=== PATIENT | male | born 1990 | race Caucasian/White ===

== ENCOUNTER 2017-04-04 05:29 | Inpatient (IN) | payer OTHER ==
[2017-04-04] MEDS: HYDROmorphONE 1 MG/ML SYG IV (05:51)
[2017-04-04] MEDS ORDERED: NITROGLYCERIN (SL) 0.4 MG TAB SL (06:30)
[2017-04-04] MEDS ORDERED: MAGNESIUM HYDROXIDE 30ML CUP PO (06:30)
[2017-04-04] MEDS ORDERED: hydrALAzine 20 MG INJ IV (06:30)
[2017-04-04] MEDS ORDERED: NA PHOSPHATE/BIPHOS 133 ML ENEMA PR (06:30)
[2017-04-04] MEDS ORDERED: LORAZEPAM 2 MG INJ IV (06:30)
[2017-04-04] MEDS ORDERED: ONDANSETRON 4 MG INJ IV (06:30)
[2017-04-04] MEDS ORDERED: ACETAMINOPHEN 325 MG TAB PO (06:30)
[2017-04-04] MEDS ORDERED: HYDROCODONE/APAP (5/325) TAB PO (06:30)
[2017-04-04] MEDS ORDERED: ALBUTEROL/IPRATROPIUM (NEB) 3 ML AMP HHN (06:30)
[2017-04-04] MEDS ORDERED: DOCUSATE SODIUM 100 MG CAP PO (06:30)
[2017-04-04] MEDS ORDERED: NACL 0.9% 3 ML SYG IV (06:30)
[2017-04-04] MEDS: SOD CHLORIDE 0.9% 1,000 ML IV (07:14)
[2017-04-04] MEDS: PIPER-TAZO 3.375 GM IV (PMX) 100 ML IVPB ×2 (07:32→14:10)
[2017-04-04 08:04] LABS: ADD MAN DIFF? NO
[2017-04-04 08:07] LABS: BASOPHILS % 0.4 % (0.0-2.0); EOSINOPHILS % 0.4 % (0.0-7.0); HEMATOCRIT 39.9 % (42.0-52.0); HEMOGLOBIN 13.4 g/dl (14.0-18.0); LYMPHOCYTES # 1.6 10^3/ul (0.8-2.9); LYMPHOCYTES % 23.8 % (15.0-51.0); MEAN CORPUSCULAR HEMOGLOBIN 30.2 pg (29.0-33.0); MEAN CORPUSCULAR HGB CONC 33.6 g/dl (32.0-37.0); MEAN CORPUSCULAR VOLUME 90.1 fl (82.0-101.0); MEAN PLATELET VOLUME 9.6 fl (7.4-10.4); MONOCYTE # 0.7 10^3/ul (0.3-0.9); MONOCYTES % 10.3 % (0.0-11.0); NEUTROPHIL # 4.4 10^3/ul (1.6-7.5); NEUTROPHILS % 64.8 % (39.0-77.0); PLATELET COUNT 212 10^3/UL (140-415); RED BLOOD COUNT 4.43 10^6/ul (4.70-6.10); RED CELL DISTRIBUTION WIDTH 11.4 % (11.5-14.5)
[2017-04-04 08:07] LABS: WHITE BLOOD COUNT 6.7 10^3/ul (4.8-10.8)
[2017-04-04 08:30] LABS: INR 1.09; PROTIME 14.2 Sec (11.9-14.9); PT RATIO 1.1
[2017-04-04 08:31] LABS: PARTIAL THROMBOPLASTIN TIME 31.9 Sec (25.0-35.0)
[2017-04-04] MEDS: morphine 2 MG INJ IV ×3 (08:37→15:45)
[2017-04-04 08:47] LABS: ALANINE AMINOTRANSFERASE 28 IU/L (13-69); ALBUMIN 3.9 g/dl (3.3-4.9); ALBUMIN/GLOBULIN RATIO 1.08; ALKALINE PHOSPHATASE 46 IU/L (42-121); ANION GAP 14 (8-16); ASPARTATE AMINO TRANSFERASE 20 IU/L (15-46); BILIRUBIN,INDIRECT 0.5 mg/dl (0-1.1); BILIRUBIN,TOTAL 0.5 mg/dl (0.2-1.3); BLOOD UREA NITROGEN 10 mg/dl (7-20); CALCIUM 9.2 mg/dl (8.4-10.2); CARBON DIOXIDE 30 mmol/L (21-31); CHLORIDE 103 mmol/L (97-110); CREATININE 1.01 mg/dl (0.61-1.24); GLUCOSE 90 mg/dl (70-220); LIPASE 30 U/L (23-300); POTASSIUM 3.7 mmol/L (3.5-5.1); SODIUM 143 mmol/L (135-144); TOTAL PROTEIN 7.5 g/dl (6.1-8.1)
[2017-04-04] MEDS: HEPARIN 5,000 UNIT/0.5 ML VIAL SC (09:00)
[2017-04-04 09:05] LABS: FREE T4 (FREE THYROXINE) 1.02 ng/dl (0.79-2.35)
[2017-04-04] MEDS: SOD CHLORIDE 0.45% 1,000 ML IV (09:45)
[2017-04-05] MEDS ORDERED: PANTOPRAZOLE (EC) 40 MG TAB PO (06:00)
== END 2017-04-04 16:02 | disposition left against medical advice (07) | DRG 392 ==
LOC: MS1 06:26 → FTE 16:06
DX: K57.32 Diverticulitis of large intestine without perforation or abscess without bleeding (principal); E03.9 Hypothyroidism, unspecified
CPT/HCPCS: 36415; 80053; 83690; 84439; 85025; 85610; 85730; 96365; 96366; 96375; 96376; 99285-25

== ENCOUNTER 2017-04-24 14:59 | Emergency (ER) | payer OTHER ==
[2017-04-24 21:24] LABS: ADD MAN DIFF? NO
[2017-04-24] MEDS: morphine 4 MG/ML VIAL IV (21:29)
[2017-04-24] MEDS: SOD CHLORIDE 0.9% 500 ML IV (21:29)
[2017-04-24] MEDS: ONDANSETRON 4 MG INJ IV (21:29)
[2017-04-24 21:32] LABS: ADD UMIC NO; UR ASCORBIC ACID NEGATIVE (NEGATIVE); UR BILIRUBIN (Dip) NEGATIVE (NEGATIVE); UR BLOOD (Dip) NEGATIVE (NEGATIVE); UR CLARITY CLEAR (CLEAR); UR COLOR YELLOW (YELLOW); UR GLUCOSE (Dip) NEGATIVE (NEGATIVE); UR KETONES (Dip) NEGATIVE (NEGATIVE); UR LEUKOCYTE ESTERASE (Dip) NEGATIVE Leu/ul (NEGATIVE); UR NITRITE (Dip) NEGATIVE (NEGATIVE); UR SPECIFIC GRAVITY (Dip) 1.011 (1.003-1.030); UR TOTAL PROTEIN (Dip) NEGATIVE (NEGATIVE); UR UROBILINOGEN (Dip) NEGATIVE (NEGATIVE)
[2017-04-24 21:45] LABS: INR 0.92; PROTIME 12.4 Sec (11.9-14.9)
[2017-04-24 21:46] LABS: PARTIAL THROMBOPLASTIN TIME 24.9 Sec (25.0-35.0)
[2017-04-24 21:47] LABS: ALANINE AMINOTRANSFERASE 35 IU/L (13-69); ALBUMIN 4.9 g/dl (3.3-4.9); ALBUMIN/GLOBULIN RATIO 1.48; ALKALINE PHOSPHATASE 56 IU/L (42-121); AMYLASE 37 U/L (11-123); ANION GAP 18 (8-16); ASPARTATE AMINO TRANSFERASE 21 IU/L (15-46); BILIRUBIN,INDIRECT 0.6 mg/dl (0-1.1); BILIRUBIN,TOTAL 0.6 mg/dl (0.2-1.3); BLOOD UREA NITROGEN 9 mg/dl (7-20); CALCIUM 9.6 mg/dl (8.4-10.2); CARBON DIOXIDE 24 mmol/L (21-31); CHLORIDE 103 mmol/L (97-110); CREATININE 0.79 mg/dl (0.61-1.24); GLUCOSE 81 mg/dl (70-220); LIPASE 54 U/L (23-300); POTASSIUM 4.1 mmol/L (3.5-5.1); SODIUM 141 mmol/L (135-144); TOTAL PROTEIN 8.2 g/dl (6.1-8.1)
[2017-04-24 21:59] LABS: WHITE BLOOD COUNT 11.4 10^3/ul (4.8-10.8)
[2017-04-24 21:59] LABS: BASOPHILS % 0.2 % (0.0-2.0); EOSINOPHILS # 0.1 10^3/ul (0.0-0.5); EOSINOPHILS % 1.2 % (0.0-7.0); HEMATOCRIT 40.9 % (42.0-52.0); HEMOGLOBIN 14.1 g/dl (14.0-18.0); LYMPHOCYTES # 2.7 10^3/ul (0.8-2.9); MEAN CORPUSCULAR HEMOGLOBIN 30.8 pg (29.0-33.0); MEAN CORPUSCULAR HGB CONC 34.5 g/dl (32.0-37.0); MEAN CORPUSCULAR VOLUME 89.3 fl (82.0-101.0); MEAN PLATELET VOLUME 9.4 fl (7.4-10.4); MONOCYTE # 0.6 10^3/ul (0.3-0.9); MONOCYTES % 4.9 % (0.0-11.0); NEUTROPHIL # 7.9 10^3/ul (1.6-7.5); NEUTROPHILS % 69.4 % (39.0-77.0); PLATELET COUNT 225 10^3/UL (140-415); RED BLOOD COUNT 4.58 10^6/ul (4.70-6.10); RED CELL DISTRIBUTION WIDTH 11.8 % (11.5-14.5)
[2017-04-24] MEDS: HYDROmorphONE 1 MG/ML SYG IV (22:54)
[2017-04-24] MEDS: SOD CHLORIDE 0.9% 100 ML (23:00)
[2017-04-24] MEDS: IOHEXOL 300MG/ML 150 ML BTL (23:00)
[2017-04-25] MEDS: HYDROmorphONE 0.5 MG/0.5 ML SYG IV (01:08)
== END 2017-04-25 02:05 | disposition home or self-care (01) ==
LOC: FTE 04-25 02:05
DX: K57.92 Diverticulitis of intestine, part unspecified, without perforation or abscess without bleeding (principal)
CPT/HCPCS: 36415; 74177; 80053; 81003; 82150; 83690; 85025; 85610; 85730; 87400; 96374; 96375; 96376; 99285-25

== ENCOUNTER 2017-07-10 23:17 | Emergency (ER) | payer OTHER ==
[2017-07-11] MEDS: ONDANSETRON 4 MG INJ IV (02:17)
[2017-07-11] MEDS: morphine 4 MG/ML VIAL IV ×2 (02:17→04:35)
[2017-07-11] MEDS: SOD CHLORIDE 0.9% 1,000 ML IV (02:18)
[2017-07-11 02:30] LABS: ADD MAN DIFF? NO
[2017-07-11 02:35] LABS: BASOPHILS % 0.3 % (0.0-2.0); EOSINOPHILS # 0.1 10^3/ul (0.0-0.5); EOSINOPHILS % 0.8 % (0.0-7.0); HEMATOCRIT 45.8 % (42.0-52.0); LYMPHOCYTES # 2.8 10^3/ul (0.8-2.9); LYMPHOCYTES % 26.3 % (15.0-51.0); MEAN CORPUSCULAR HEMOGLOBIN 30.4 pg (29.0-33.0); MEAN CORPUSCULAR HGB CONC 34.9 g/dl (32.0-37.0); MEAN CORPUSCULAR VOLUME 87.1 fl (82.0-101.0); MEAN PLATELET VOLUME 9.5 fl (7.4-10.4); MONOCYTE # 0.6 10^3/ul (0.3-0.9); MONOCYTES % 5.7 % (0.0-11.0); NEUTROPHIL # 7.1 10^3/ul (1.6-7.5); NEUTROPHILS % 66.5 % (39.0-77.0); PLATELET COUNT 258 10^3/UL (140-415); RED BLOOD COUNT 5.26 10^6/ul (4.70-6.10); RED CELL DISTRIBUTION WIDTH 11.6 % (11.5-14.5)
[2017-07-11 02:35] LABS: WHITE BLOOD COUNT 10.6 10^3/ul (4.8-10.8)
[2017-07-11 02:52] LABS: ALANINE AMINOTRANSFERASE 54 IU/L (13-69); ALBUMIN 4.8 g/dl (3.3-4.9); ALBUMIN/GLOBULIN RATIO 1.11; ALKALINE PHOSPHATASE 49 IU/L (42-121); ANION GAP 21 (8-16); ASPARTATE AMINO TRANSFERASE 29 IU/L (15-46); BILIRUBIN,INDIRECT 0.6 mg/dl (0-1.1); BILIRUBIN,TOTAL 0.6 mg/dl (0.2-1.3); BLOOD UREA NITROGEN 14 mg/dl (7-20); CALCIUM 9.8 mg/dl (8.4-10.2); CARBON DIOXIDE 31 mmol/L (21-31); CHLORIDE 100 mmol/L (97-110); CREATININE 0.97 mg/dl (0.61-1.24); GLUCOSE 95 mg/dl (70-220); LIPASE 43 U/L (23-300); POTASSIUM 4.5 mmol/L (3.5-5.1); SODIUM 147 mmol/L (135-144); TOTAL PROTEIN 9.1 g/dl (6.1-8.1)
[2017-07-11 03:09] LABS: ADD UMIC NO; UR ASCORBIC ACID NEGATIVE (NEGATIVE); UR BILIRUBIN (Dip) NEGATIVE (NEGATIVE); UR BLOOD (Dip) NEGATIVE (NEGATIVE); UR CLARITY CLEAR (CLEAR); UR COLOR YELLOW (YELLOW); UR GLUCOSE (Dip) NEGATIVE (NEGATIVE); UR KETONES (Dip) NEGATIVE (NEGATIVE); UR LEUKOCYTE ESTERASE (Dip) NEGATIVE Leu/ul (NEGATIVE); UR NITRITE (Dip) NEGATIVE (NEGATIVE); UR SPECIFIC GRAVITY (Dip) 1.017 (1.003-1.030); UR TOTAL PROTEIN (Dip) NEGATIVE (NEGATIVE); UR UROBILINOGEN (Dip) NEGATIVE (NEGATIVE)
[2017-07-11] MEDS: IOHEXOL 300MG/ML 150 ML BTL (03:33)
[2017-07-11] MEDS: SOD CHLORIDE 0.9% 100 ML (03:33)
== END 2017-07-11 04:51 | disposition home or self-care (01) ==
LOC: FTE 23:17
DX: K57.92 Diverticulitis of intestine, part unspecified, without perforation or abscess without bleeding (principal)
CPT/HCPCS: 36415; 74177; 80053; 81003; 83690; 85025; 96374; 96375; 96376; 99285-25

== ENCOUNTER 2017-07-16 21:12 | Emergency (ER) | payer OTHER ==
[2017-07-16] MEDS: HYDROCODONE/APAP (5/325) TAB PO (22:43)
[2017-07-16 23:01] LABS: ADD MAN DIFF? NO
[2017-07-16 23:04] LABS: WHITE BLOOD COUNT 9.6 10^3/ul (4.8-10.8)
[2017-07-16 23:04] LABS: BASOPHILS % 0.3 % (0.0-2.0); EOSINOPHILS # 0.1 10^3/ul (0.0-0.5); EOSINOPHILS % 1.2 % (0.0-7.0); HEMATOCRIT 40.3 % (42.0-52.0); HEMOGLOBIN 13.8 g/dl (14.0-18.0); LYMPHOCYTES # 3.2 10^3/ul (0.8-2.9); LYMPHOCYTES % 33.3 % (15.0-51.0); MEAN CORPUSCULAR HEMOGLOBIN 30.2 pg (29.0-33.0); MEAN CORPUSCULAR HGB CONC 34.2 g/dl (32.0-37.0); MEAN CORPUSCULAR VOLUME 88.2 fl (82.0-101.0); MEAN PLATELET VOLUME 9.2 fl (7.4-10.4); MONOCYTE # 0.5 10^3/ul (0.3-0.9); MONOCYTES % 5.1 % (0.0-11.0); NEUTROPHIL # 5.8 10^3/ul (1.6-7.5); NEUTROPHILS % 59.8 % (39.0-77.0); PLATELET COUNT 273 10^3/UL (140-415); RED BLOOD COUNT 4.57 10^6/ul (4.70-6.10); RED CELL DISTRIBUTION WIDTH 11.8 % (11.5-14.5)
[2017-07-16 23:20] LABS: ALANINE AMINOTRANSFERASE 40 IU/L (13-69); ALBUMIN 3.7 g/dl (3.3-4.9); ALBUMIN/GLOBULIN RATIO 1.12; ALKALINE PHOSPHATASE 41 IU/L (42-121); ANION GAP 15 (8-16); ASPARTATE AMINO TRANSFERASE 17 IU/L (15-46); BILIRUBIN,INDIRECT 0.2 mg/dl (0-1.1); BILIRUBIN,TOTAL 0.2 mg/dl (0.2-1.3); BLOOD UREA NITROGEN 17 mg/dl (7-20); CALCIUM 8.8 mg/dl (8.4-10.2); CARBON DIOXIDE 27 mmol/L (21-31); CHLORIDE 107 mmol/L (97-110); GLUCOSE 95 mg/dl (70-220); POTASSIUM 3.9 mmol/L (3.5-5.1); SODIUM 145 mmol/L (135-144)
[2017-07-16 23:23] LABS: INR 1.25; PARTIAL THROMBOPLASTIN TIME 32.8 Sec (25.0-35.0); PROTIME 15.9 Sec (11.9-14.9); PT RATIO 1.2
[2017-07-17] MEDS: KETOROLAC 30 MG INJ IM (00:38)
== END 2017-07-17 00:45 | disposition home or self-care (01) ==
LOC: FTE 07-17 00:45
DX: I80.8 Phlebitis and thrombophlebitis of other sites (principal)
CPT/HCPCS: 80053; 85025; 85610; 85730; 93971; 96372; 99285-25

== ENCOUNTER 2017-07-20 18:58 | Inpatient (IN) | payer OTHER ==
[2017-07-20] MEDS: HYDROmorphONE 2 MG TAB PO (20:48)
[2017-07-20] MEDS ORDERED: HYDROmorphONE 0.5 MG/0.5 ML SYG IV (21:00)
[2017-07-20] MEDS ORDERED: OXYCODONE/ACETAMINOPHEN (5/325) TAB PO (21:00)
[2017-07-20] MEDS ORDERED: NACL 0.9% 3 ML SYG IV (21:00)
[2017-07-20] MEDS ORDERED: PIPER-TAZO 3.375 GM IV (PMX) 100 ML IVPB (22:00)
[2017-07-20] MEDS: KETOROLAC 15 MG INJ IV (22:37)
[2017-07-21] MEDS ORDERED: ENOXAPARIN 40 MG/0.4 ML SYG SC (09:00)
== END 2017-07-20 23:30 | disposition left against medical advice (07) | DRG 392 ==
LOC: PP2 18:58
DX: K57.92 Diverticulitis of intestine, part unspecified, without perforation or abscess without bleeding (principal); F11.10 Opioid abuse, uncomplicated

== ENCOUNTER 2017-07-24 02:45 | Emergency (ER) | payer OTHER ==
[2017-07-24] MEDS: HYDROCODONE/APAP (5/325) TAB PO (07:15)
[2017-07-24] MEDS: CIPROFLOXACIN 500 MG TAB PO (07:15)
[2017-07-24] MEDS: metroNIDAZOLE 500 MG TAB PO (07:29)
[2017-07-24 07:58] LABS: ADD UMIC NO; UR ASCORBIC ACID NEGATIVE (NEGATIVE); UR BILIRUBIN (Dip) NEGATIVE (NEGATIVE); UR BLOOD (Dip) NEGATIVE (NEGATIVE); UR CLARITY CLEAR (CLEAR); UR COLOR YELLOW (YELLOW); UR GLUCOSE (Dip) NEGATIVE (NEGATIVE); UR KETONES (Dip) NEGATIVE (NEGATIVE); UR LEUKOCYTE ESTERASE (Dip) NEGATIVE Leu/ul (NEGATIVE); UR NITRITE (Dip) NEGATIVE (NEGATIVE); UR SPECIFIC GRAVITY (Dip) 1.025 (1.003-1.030); UR TOTAL PROTEIN (Dip) NEGATIVE (NEGATIVE); UR UROBILINOGEN (Dip) NEGATIVE (NEGATIVE)
[2017-07-24 08:28] LABS: ADD MAN DIFF? NO
[2017-07-24 08:34] LABS: BASOPHILS % 0.2 % (0.0-2.0); EOSINOPHILS # 0.1 10^3/ul (0.0-0.5); EOSINOPHILS % 0.5 % (0.0-7.0); HEMATOCRIT 44.5 % (42.0-52.0); HEMOGLOBIN 15.1 g/dl (14.0-18.0); LYMPHOCYTES # 2.7 10^3/ul (0.8-2.9); LYMPHOCYTES % 25.1 % (15.0-51.0); MEAN CORPUSCULAR HEMOGLOBIN 30.2 pg (29.0-33.0); MEAN CORPUSCULAR HGB CONC 33.9 g/dl (32.0-37.0); MEAN PLATELET VOLUME 8.8 fl (7.4-10.4); MONOCYTE # 0.8 10^3/ul (0.3-0.9); MONOCYTES % 7.5 % (0.0-11.0); NEUTROPHIL # 7.1 10^3/ul (1.6-7.5); NEUTROPHILS % 66.4 % (39.0-77.0); PLATELET COUNT 318 10^3/UL (140-415)
[2017-07-24 08:34] LABS: WHITE BLOOD COUNT 10.7 10^3/ul (4.8-10.8)
[2017-07-24 09:18] LABS: ALANINE AMINOTRANSFERASE 30 IU/L (13-69); ALBUMIN 4.4 g/dl (3.3-4.9); ALBUMIN/GLOBULIN RATIO 1.25; ALKALINE PHOSPHATASE 45 IU/L (42-121); ANION GAP 14 (8-16); ASPARTATE AMINO TRANSFERASE 16 IU/L (15-46); BILIRUBIN,INDIRECT 0.7 mg/dl (0-1.1); BILIRUBIN,TOTAL 0.7 mg/dl (0.2-1.3); BLOOD UREA NITROGEN 14 mg/dl (7-20); CALCIUM 9.6 mg/dl (8.4-10.2); CARBON DIOXIDE 34 mmol/L (21-31); CHLORIDE 99 mmol/L (97-110); CREATININE 1.08 mg/dl (0.61-1.24); GLUCOSE 93 mg/dl (70-220); LIPASE 34 U/L (23-300); POTASSIUM 4.1 mmol/L (3.5-5.1); SODIUM 143 mmol/L (135-144); TOTAL PROTEIN 7.9 g/dl (6.1-8.1)
== END 2017-07-24 10:24 | disposition home or self-care (01) ==
LOC: FTE 02:45
DX: I82.90 Acute embolism and thrombosis of unspecified vein (principal); Z79.01 Long term (current) use of anticoagulants
CPT/HCPCS: 80053; 81003; 83690; 85025; 93971; 99284

== ENCOUNTER 2017-07-25 06:31 | Inpatient (IN) | payer OTHER ==
[2017-07-25] MEDS ORDERED: NACL 0.9% 3 ML SYG IV (09:30)
[2017-07-25] MEDS ORDERED: ONDANSETRON 4 MG INJ IV (09:30)
[2017-07-25] MEDS ORDERED: ACETAMINOPHEN 325 MG TAB PO (09:30)
[2017-07-25] MEDS ORDERED: DOCUSATE SODIUM 100 MG CAP PO (09:30)
[2017-07-25] MEDS: morphine 2 MG INJ IV ×3 (09:59→19:31)
[2017-07-25] MEDS: FAMOTIDINE 20 MG INJ IV ×2 (09:59→20:57)
[2017-07-25] MEDS: ERTAPENEM SODIUM 1 GM in SOD CHLORIDE 0.9% 100 ML IVPB (11:39)
[2017-07-25] MEDS: SOD CHLORIDE 0.9% 1,000 ML IV ×2 (11:40→19:32)
[2017-07-25] MEDS: RIVAROXABAN 20 MG TABLET PO (19:31)
[2017-07-25 21:19] LABS: ADD UMIC NO; UR ASCORBIC ACID NEGATIVE (NEGATIVE); UR BILIRUBIN (Dip) NEGATIVE (NEGATIVE); UR BLOOD (Dip) NEGATIVE (NEGATIVE); UR CLARITY CLEAR (CLEAR); UR COLOR YELLOW (YELLOW); UR GLUCOSE (Dip) NEGATIVE (NEGATIVE); UR KETONES (Dip) NEGATIVE (NEGATIVE); UR LEUKOCYTE ESTERASE (Dip) NEGATIVE Leu/ul (NEGATIVE); UR NITRITE (Dip) NEGATIVE (NEGATIVE); UR SPECIFIC GRAVITY (Dip) 1.027 (1.003-1.030); UR TOTAL PROTEIN (Dip) NEGATIVE (NEGATIVE); UR UROBILINOGEN (Dip) NEGATIVE (NEGATIVE)
== END 2017-07-25 22:00 | disposition left against medical advice (07) | DRG 392 ==
LOC: MS2 06:31
DX: K57.32 Diverticulitis of large intestine without perforation or abscess without bleeding (principal); I82.612 Acute embolism and thrombosis of superficial veins of left upper extremity
CPT/HCPCS: 81003; 87040; 87086

== ENCOUNTER 2017-11-26 00:08 | Inpatient (IN) | payer OTHER ==
[2017-11-26 01:27] LABS: ADD MAN DIFF? NO
[2017-11-26 01:29] LABS: BASOPHILS % 0.2 % (0.0-2.0); EOSINOPHILS % 0.3 % (0.0-7.0); HEMATOCRIT 41.7 % (42.0-52.0); HEMOGLOBIN 14.3 g/dl (14.0-18.0); LYMPHOCYTES # 1.8 10^3/ul (0.8-2.9); MEAN CORPUSCULAR HEMOGLOBIN 30.8 pg (29.0-33.0); MEAN CORPUSCULAR HGB CONC 34.3 g/dl (32.0-37.0); MEAN CORPUSCULAR VOLUME 89.7 fl (82.0-101.0); MEAN PLATELET VOLUME 9.3 fl (7.4-10.4); MONOCYTE # 0.7 10^3/ul (0.3-0.9); MONOCYTES % 6.6 % (0.0-11.0); NEUTROPHIL # 8.6 10^3/ul (1.6-7.5); NEUTROPHILS % 76.5 % (39.0-77.0); PLATELET COUNT 256 10^3/UL (140-415); RED BLOOD COUNT 4.65 10^6/ul (4.70-6.10); RED CELL DISTRIBUTION WIDTH 11.7 % (11.5-14.5)
[2017-11-26 01:29] LABS: WHITE BLOOD COUNT 11.3 10^3/ul (4.8-10.8)
[2017-11-26] MEDS: ONDANSETRON 4 MG INJ IV ×2 (01:30→16:50)
[2017-11-26] MEDS: morphine 4 MG/ML VIAL IV (01:30)
[2017-11-26] MEDS: SOD CHLORIDE 0.9% 1,000 ML IV ×4 (01:30→18:06)
[2017-11-26 01:48] LABS: INR 0.92
[2017-11-26 01:49] LABS: PARTIAL THROMBOPLASTIN TIME 26.2 Sec (25.0-35.0)
[2017-11-26 01:52] LABS: ALANINE AMINOTRANSFERASE 53 IU/L (13-69); ALBUMIN/GLOBULIN RATIO 1.08; ALKALINE PHOSPHATASE 45 IU/L (42-121); ANION GAP 14 (8-16); ASPARTATE AMINO TRANSFERASE 31 IU/L (15-46); BILIRUBIN,INDIRECT 0.6 mg/dl (0-1.1); BILIRUBIN,TOTAL 0.6 mg/dl (0.2-1.3); BLOOD UREA NITROGEN 12 mg/dl (7-20); CALCIUM 9.3 mg/dl (8.4-10.2); CARBON DIOXIDE 30 mmol/L (21-31); CHLORIDE 101 mmol/L (97-110); CREATININE 0.89 mg/dl (0.61-1.24); GLUCOSE 107 mg/dl (70-220); LIPASE 31 U/L (23-300); SODIUM 141 mmol/L (135-144); TOTAL PROTEIN 7.7 g/dl (6.1-8.1)
[2017-11-26] MEDS ORDERED: BISACODYL (EC) 5 MG TAB PO (02:30)
[2017-11-26] MEDS ORDERED: NACL 0.9% 3 ML SYG IV (02:30)
[2017-11-26] MEDS ORDERED: HYDROmorphONE 0.5 MG/0.5 ML SYG IV ×3 (02:30→16:30)
[2017-11-26] MEDS ORDERED: ACETAMINOPHEN 325 MG TAB PO (02:30)
[2017-11-26] MEDS ORDERED: DOCUSATE SODIUM 100 MG CAP PO (02:30)
[2017-11-26 02:32] LABS: PROTIME 12.4 Sec (11.9-14.9)
[2017-11-26] MEDS: morphine 2 MG INJ IV ×3 (03:49→22:38)
[2017-11-26] MEDS ORDERED: metroNIDAZOLE 500 MG/100 ML NS IVPB (07:00)
[2017-11-26] MEDS ORDERED: LIDOCAINE 2% (SDV) 5 ML INJ (07:00)
[2017-11-26] MEDS ORDERED: MIDAZOLAM 1 MG/ML 2 ML INJ (07:00)
[2017-11-26] MEDS ORDERED: PROPOFOL 200 MG INJ (07:00)
[2017-11-26] MEDS ORDERED: BUPIVACAINE 0.75%/DEXT (SPINAL) 2 ML INJ (07:00)
[2017-11-26] MEDS ORDERED: METHYLENE BLUE 1% 10 ML INJ (07:00)
[2017-11-26] MEDS ORDERED: PIPERACIL/TAZO 3.375GM/100ML BAG (07:00)
[2017-11-26] MEDS ORDERED: BUPIVACAINE 0.5% (SDV) 30 ML INJ (07:00)
[2017-11-26] MEDS ORDERED: FENTAnyl 250MCG INJ (07:00)
[2017-11-26] MEDS ORDERED: ROCURONIUM 50 MG INJ (07:00)
[2017-11-26] MEDS ORDERED: morphine SULFATE/PF (10 MG/10 ML) INJ (07:00)
[2017-11-26] MEDS: PIPER-TAZO 3.375 GM IV (PMX) 100 ML IVPB ×3 (08:54→18:43)
[2017-11-26] MEDS ORDERED: BUPIVACAINE 0.25% (MPF) 30 ML INJ (10:59)
[2017-11-26] MEDS ORDERED: BUPIVACAINE 0.5% 30 ML VIAL INJ (16:15)
[2017-11-26] MEDS ORDERED: HYDROmorphONE 1 MG/5 ML IV SYRINGE IV (16:30)
[2017-11-26] MEDS ORDERED: ONDANSETRON 4 MG INJ IV ×2 (16:30)
[2017-11-26] MEDS ORDERED: DIPHENHYDRAMINE 50 MG INJ IV ×2 (16:30)
[2017-11-26] MEDS ORDERED: metroNIDAZOLE 500 MG/NS (PMX) 100 ML IVPB (16:30)
[2017-11-26] MEDS ORDERED: ALBUTEROL 0.083% (NEB) 2.5 MG/3 ML AMP HHN (16:30)
[2017-11-26] MEDS ORDERED: KETOROLAC 30 MG INJ IV (16:30)
[2017-11-26] MEDS ORDERED: NALOXONE (0.4 MG/ML) INJ IV ×2 (16:30)
[2017-11-26] MEDS ORDERED: LABETALOL HCL 20MG INJ IV (16:30)
[2017-11-26] MEDS ORDERED: OXYCODONE/ACETAMINOPHEN (5/325) TAB PO ×2 (16:30)
[2017-11-26] MEDS ORDERED: hydrALAzine 20 MG INJ IV (16:30)
[2017-11-26] MEDS ORDERED: METOCLOPRAMIDE 10 MG INJ IV (16:30)
[2017-11-26] MEDS ORDERED: EPHEDrine SULFATE 50 MG/5 ML SYG IV (16:30)
[2017-11-26] MEDS ORDERED: MIDAZOLAM 1 MG/ML 2 ML INJ IV (16:30)
[2017-11-26] MEDS: MEPERIDINE 25 MG INJ IV (16:49)
[2017-11-26] MEDS: HYDROmorphONE 1 MG/5 ML IV SYRINGE IV ×2 (16:50→17:26)
[2017-11-26] MEDS: HYDROmorphONE 0.2 MG/ML PCA IV (17:15)
[2017-11-26] MEDS: metroNIDAZOLE 500 MG/NS (PMX) 100 ML IVPB (22:18)
[2017-11-27] MEDS: PIPER-TAZO 3.375 GM IV (PMX) 100 ML IVPB ×5 (01:31→23:20)
[2017-11-27] MEDS: metroNIDAZOLE 500 MG/NS (PMX) 100 ML IVPB ×3 (04:26→20:56)
[2017-11-27] MEDS: SOD CHLORIDE 0.9% 1,000 ML IV ×3 (06:15→20:57)
[2017-11-27] MEDS: morphine 2 MG INJ IV (06:19)
[2017-11-27] MEDS: ACETAMINOPHEN 1000MG/100ML IV 100 ML IVPB ×3 (07:00→18:50)
[2017-11-27] MEDS: HYDROmorphONE 0.2 MG/ML PCA IV ×2 (07:04→08:10)
[2017-11-27 07:41] LABS: ADD MAN DIFF? NO
[2017-11-27 07:52] LABS: BASOPHILS % 0.1 % (0.0-2.0); HEMATOCRIT 32.3 % (42.0-52.0); HEMOGLOBIN 10.7 g/dl (14.0-18.0); LYMPHOCYTES # 0.6 10^3/ul (0.8-2.9); LYMPHOCYTES % 4.3 % (15.0-51.0); MEAN CORPUSCULAR HEMOGLOBIN 30.5 pg (29.0-33.0); MEAN CORPUSCULAR HGB CONC 33.1 g/dl (32.0-37.0); MEAN PLATELET VOLUME 9.8 fl (7.4-10.4); MONOCYTE # 1.1 10^3/ul (0.3-0.9); MONOCYTES % 7.6 % (0.0-11.0); NEUTROPHIL # 12.8 10^3/ul (1.6-7.5); NEUTROPHILS % 87.6 % (39.0-77.0); PLATELET COUNT 220 10^3/UL (140-415); RED BLOOD COUNT 3.51 10^6/ul (4.70-6.10); RED CELL DISTRIBUTION WIDTH 11.8 % (11.5-14.5)
[2017-11-27 07:52] LABS: WHITE BLOOD COUNT 14.7 10^3/ul (4.8-10.8)
[2017-11-27 08:23] LABS: ALANINE AMINOTRANSFERASE 41 IU/L (13-69); ALBUMIN 2.8 g/dl (3.3-4.9); ALKALINE PHOSPHATASE 22 IU/L (42-121); ANION GAP 11 (8-16); ASPARTATE AMINO TRANSFERASE 32 IU/L (15-46); BILIRUBIN,INDIRECT 1.6 mg/dl (0-1.1); BILIRUBIN,TOTAL 1.6 mg/dl (0.2-1.3); BLOOD UREA NITROGEN 11 mg/dl (7-20); CARBON DIOXIDE 29 mmol/L (21-31); CHLORIDE 103 mmol/L (97-110); CHOL/HDL RATIO 3.3 RATIO; CHOLESTEROL 109 mg/dl (100-200); GLUCOSE 114 mg/dl (70-220); HDL CHOLESTEROL 33 mg/dl (30-63); LDL CHOLESTEROL,CALCULATED 56 mg/dl; MAGNESIUM 1.4 mg/dl (1.7-2.5); POTASSIUM 3.9 mmol/L (3.5-5.1); SODIUM 139 mmol/L (135-144); TOTAL PROTEIN 5.6 g/dl (6.1-8.1); TRIGLYCERIDES 101 mg/dl (0-149)
[2017-11-27] MEDS: METHYLNALTREXONE 12 MG/0.6 ML VIAL SC (08:26)
[2017-11-27] MEDS: HYDROmorphONE 2 MG/ML SYG IV ×8 (08:26→23:20)
[2017-11-27 08:43] LABS: THYROID STIMULATING HORMONE 0.771 MIU/L (0.465-4.680)
[2017-11-27 09:27] LABS: HEMOGLOBIN A1C 4.5 % (0-5.9)
[2017-11-27] MEDS: MAGNESIUM SULFATE 3 GM in DEXTROSE 5% 100 ML IVPB (14:52)
[2017-11-28] MEDS: HYDROmorphONE 2 MG/ML SYG IV ×11 (01:27→23:03)
[2017-11-28] MEDS: ACETAMINOPHEN 1000MG/100ML IV 100 ML IVPB ×4 (01:30→20:04)
[2017-11-28] MEDS: METOCLOPRAMIDE 10 MG INJ IV ×4 (01:58→18:11)
[2017-11-28] MEDS: metroNIDAZOLE 500 MG/NS (PMX) 100 ML IVPB ×3 (03:18→21:06)
[2017-11-28] MEDS: HYDROmorphONE 0.2 MG/ML PCA IV ×2 (03:27→23:47)
[2017-11-28] MEDS: SOD CHLORIDE 0.9% 1,000 ML IV ×3 (04:22→16:00)
[2017-11-28] MEDS: PIPER-TAZO 3.375 GM IV (PMX) 100 ML IVPB ×4 (05:47→23:42)
[2017-11-28] MEDS: METHYLNALTREXONE 12 MG/0.6 ML VIAL SC (08:01)
[2017-11-28 09:14] LABS: ADD MAN DIFF? NO
[2017-11-28 09:21] LABS: WHITE BLOOD COUNT 11.2 10^3/ul (4.8-10.8)
[2017-11-28 09:21] LABS: BASOPHILS % 0.1 % (0.0-2.0); HEMATOCRIT 29.5 % (42.0-52.0); HEMOGLOBIN 9.7 g/dl (14.0-18.0); LYMPHOCYTES # 1.1 10^3/ul (0.8-2.9); LYMPHOCYTES % 10.2 % (15.0-51.0); MEAN CORPUSCULAR HEMOGLOBIN 31.1 pg (29.0-33.0); MEAN CORPUSCULAR HGB CONC 32.9 g/dl (32.0-37.0); MEAN CORPUSCULAR VOLUME 94.6 fl (82.0-101.0); MEAN PLATELET VOLUME 9.7 fl (7.4-10.4); MONOCYTE # 0.9 10^3/ul (0.3-0.9); MONOCYTES % 7.9 % (0.0-11.0); NEUTROPHIL # 9.1 10^3/ul (1.6-7.5); NEUTROPHILS % 81.4 % (39.0-77.0); NUCLEATED RED BLOOD CELLS% 0.2 /100WBC (0.0-0.0); PLATELET COUNT 185 10^3/UL (140-415); RED BLOOD COUNT 3.12 10^6/ul (4.70-6.10); RED CELL DISTRIBUTION WIDTH 11.8 % (11.5-14.5)
[2017-11-28] MEDS: MAGNESIUM SULFATE 4 GM/100 ML 100 ML IVPB (16:53)
[2017-11-28] MEDS ORDERED: METOCLOPRAMIDE 10 MG INJ IV (18:00)
[2017-11-29] MEDS: METOCLOPRAMIDE 10 MG INJ IV ×3 (00:06→11:58)
[2017-11-29] MEDS: ACETAMINOPHEN 1000MG/100ML IV 100 ML IVPB ×4 (00:59→20:47)
[2017-11-29] MEDS: HYDROmorphONE 2 MG/ML SYG IV ×5 (00:59→10:03)
[2017-11-29] MEDS: SOD CHLORIDE 0.9% 1,000 ML IV ×3 (01:52→15:55)
[2017-11-29] MEDS: metroNIDAZOLE 500 MG/NS (PMX) 100 ML IVPB ×3 (03:48→22:34)
[2017-11-29] MEDS: PIPER-TAZO 3.375 GM IV (PMX) 100 ML IVPB ×3 (06:09→18:16)
[2017-11-29] MEDS: METHYLNALTREXONE 12 MG/0.6 ML VIAL SC (08:00)
[2017-11-29] MEDS: HYDROmorphONE 1 MG/ML SYG IV ×5 (11:59→23:38)
[2017-11-29 12:13] LABS: ADD MAN DIFF? NO
[2017-11-29 12:19] LABS: WHITE BLOOD COUNT 13.2 10^3/ul (4.8-10.8)
[2017-11-29 12:19] LABS: BASOPHILS % 0.2 % (0.0-2.0); EOSINOPHILS % 0.1 % (0.0-7.0); HEMATOCRIT 31.5 % (42.0-52.0); HEMOGLOBIN 10.5 g/dl (14.0-18.0); LYMPHOCYTES # 0.7 10^3/ul (0.8-2.9); LYMPHOCYTES % 5.6 % (15.0-51.0); MEAN CORPUSCULAR HEMOGLOBIN 30.9 pg (29.0-33.0); MEAN CORPUSCULAR HGB CONC 33.3 g/dl (32.0-37.0); MEAN CORPUSCULAR VOLUME 92.6 fl (82.0-101.0); MEAN PLATELET VOLUME 9.4 fl (7.4-10.4); MONOCYTE # 0.9 10^3/ul (0.3-0.9); MONOCYTES % 6.8 % (0.0-11.0); NEUTROPHIL # 11.5 10^3/ul (1.6-7.5); NEUTROPHILS % 86.8 % (39.0-77.0); PLATELET COUNT 219 10^3/UL (140-415); RED CELL DISTRIBUTION WIDTH 11.7 % (11.5-14.5)
[2017-11-29] MEDS: CHLORPROMAZINE 10 MG TAB PO (12:36)
[2017-11-29] MEDS: METOPROLOL 5 MG INJ IV (16:13)
[2017-11-29] MEDS: METOPROLOL 25 MG TAB GTB (18:32)
[2017-11-29] MEDS: BACLOFEN 10 MG TAB PO (20:46)
[2017-11-29] MEDS: ZOLPIDEM 5 MG TAB PO ×2 (20:48→22:34)
[2017-11-30] MEDS: HYDROmorphONE 1 MG/ML SYG IV (00:54)
[2017-11-30] MEDS: PIPER-TAZO 3.375 GM IV (PMX) 100 ML IVPB ×3 (00:59→11:58)
[2017-11-30] MEDS: ACETAMINOPHEN 1000MG/100ML IV 100 ML IVPB ×3 (01:57→13:00)
[2017-11-30] MEDS: HYDROmorphONE 0.2 MG/ML PCA IV (02:45)
[2017-11-30] MEDS: metroNIDAZOLE 500 MG/NS (PMX) 100 ML IVPB ×2 (05:08→11:24)
[2017-11-30] MEDS: SOD CHLORIDE 0.9% 1,000 ML IV ×2 (06:57→10:34)
[2017-11-30] MEDS ORDERED: EPINEPHrine 0.1 MG/ML SYG (07:00)
[2017-11-30] MEDS ORDERED: NA BICARBONATE 8.4% 50 ML SYG (07:00)
[2017-11-30] MEDS ORDERED: CA CHLORIDE 10% 10 ML SYRINGE (07:00)
[2017-11-30] MEDS ORDERED: ATROPINE 1 MG/10 ML SYRINGE (07:00)
[2017-11-30] MEDS ORDERED: AMIODARONE 150 MG INJ (07:00)
[2017-11-30] MEDS ORDERED: MAGNESIUM SULFATE 1 GM/100 ML D5W IVPB (07:00)
[2017-11-30] MEDS: METHYLNALTREXONE 12 MG/0.6 ML VIAL SC (08:46)
[2017-11-30] MEDS: METOPROLOL 25 MG TAB GTB (08:47)
[2017-11-30 09:22] LABS: WHITE BLOOD COUNT 6.7 10^3/ul (4.8-10.8)
[2017-11-30 09:22] LABS: ABNORMAL IP MESSAGE 1; HEMATOCRIT 45.7 % (42.0-52.0); HEMOGLOBIN 15.1 g/dl (14.0-18.0); MEAN CORPUSCULAR HEMOGLOBIN 30.6 pg (29.0-33.0); MEAN CORPUSCULAR VOLUME 92.5 fl (82.0-101.0); MEAN PLATELET VOLUME 9.5 fl (7.4-10.4); NUCLEATED RED BLOOD CELLS% 0.4 /100WBC (0.0-0.0); PLATELET COUNT 409 10^3/UL (140-415); POSITIVE DIFF @See below; RED BLOOD COUNT 4.94 10^6/ul (4.70-6.10); RED CELL DISTRIBUTION WIDTH 12.1 % (11.5-14.5)
[2017-11-30 09:24] LABS: ADD MAN DIFF? YES
[2017-11-30 09:53] LABS: ANISOCYTOSIS 1+ (0-0); BAND NEUTROPHILS #M 0.8 10^3/ul (0.0-0.6); BAND NEUTROPHILS % (M) 12 % (0-4); ERYTHROBLAST% (NRBC) (M) 1 % (0-0); GIANT THROMBO% (M) 2 % (0-0); LYMPHOCYTES #M 0.8 10^3/ul (0.8-2.9); LYMPHOCYTES % (M) 12 % (15-51); MONOCYTE #M 0.4 10^3/ul (0.3-0.9); MONOCYTES % (M) 6 % (0-11); PLATELET ESTIMATE NORMAL; PLATELET MORPHOLOGY COMMENT @See below; POLYCHROMASIA 3+ (0-0); REACTIVE LYMPHOCYTES% (M) 1 % (0-0); SEG NEUT #M 4.7 10^3/ul (1.6-7.5); SEGMENTED NEUTROPHILS (M) % 69 % (39-77); SMUDGE%M 2 % (0-0)
[2017-11-30] MEDS ORDERED: SOD CHLORIDE 0.9% 250 ML IV (14:00)
[2017-11-30] MEDS ORDERED: IOHEXOL 14.3 MG(I)/ML (ADULT) BTL PO (14:00)
[2017-11-30] MEDS ORDERED: ACETAMINOPHEN 325 MG TAB PO (14:00)
[2017-11-30] MEDS ORDERED: METOPROLOL 50 MG TAB GTB (21:00)
== END 2017-11-30 19:45 | disposition expired | DRG 330 ==
LOC: TEL 11-29 15:20 → E/R 00:08 → 2NE 01:41
PROC: 0DBN0ZZ Excision of Sigmoid Colon, Open Approach (ICD-10-PCS; principal; 2017-11-26 11:00)
PROC: 0DNP4ZZ Release Rectum, Percutaneous Endoscopic Approach (ICD-10-PCS; 2017-11-26 11:00)
PROC: 0DN84ZZ Release Small Intestine, Percutaneous Endoscopic Approach (ICD-10-PCS; 2017-11-26 11:00)
PROC: 0DBP0ZZ Excision of Rectum, Open Approach (ICD-10-PCS; 2017-11-26 11:00)
PROC: 0DBG0ZZ Excision of Left Large Intestine, Open Approach (ICD-10-PCS; 2017-11-26 11:00)
PROC: 0BH17EZ Insertion of Endotracheal Airway into Trachea, Via Natural or Artificial Opening (ICD-10-PCS; 2017-11-26 11:15)
DX: K57.32 Diverticulitis of large intestine without perforation or abscess without bleeding (principal); D62 Acute posthemorrhagic anemia; I47.2 Ventricular tachycardia; E66.9 Obesity, unspecified; D72.829 Elevated white blood cell count, unspecified; Z53.31 Laparoscopic surgical procedure converted to open procedure; Z68.29 Body mass index [BMI] 29.0-29.9, adult; R06.6 Hiccough; R14.2 Eructation; I49.01 Ventricular fibrillation; R14.0 Abdominal distension (gaseous)
CPT/HCPCS: 36415; 71045; 80053; 80061; 82962; 83036; 83690; 83735; 84443; 85025; 85610; 85730; 88305; 92950; 93005; 96374; 96375; 99285-25